=== PATIENT | male | born 1950 | race Caucasian/White ===

== ENCOUNTER 2021-03-22 13:12 | Outpatient (CLI) | payer MEDICARE ==
[2021-03-22 14:40] LABS: Bilirubin Neg (Negative); Blood, Urine Negative (Negative); Clarity Clear (Clear); Glucose, Urine (Dipstick) Normal (Negative); Ketone, Urine Negative (Negative); Leukocyte Negative (Negative); Nitrite Negative (Negative); Protein, Urine (Dipstick) 30 mg/dl (Neg-Trace); Specific Gravity, Urine 1.015 (1.002-1.036); Urobilinogen Normal mg/dL (Less than 2)
[2021-03-22 14:50] LABS: #Eosinphils 0.3 10x3/uL (0.0-0.5); #Monocytes 0.7 10x3/uL (0.0-1.1); #Neutrophils 3.6 10x3/uL (1.5-8.4); %Basophils 0.7 % (0.0-2.0); %Eosinophils 4.3 % (0.0-6.0); %Lymphocytes 20.9 % (18.0-47.0); %Monocytes 11.8 % (0.0-10.0); %Neutrophils 62.1 % (40.0-75.0); Hemoglobin 13.4 g/dL (13.5-17.5); Mean Corpuscular HGB CONC 32.3 g/dL (32.0-36.0); Mean Corpuscular Hemoglobin 32.4 pg (27.0-33.0); Mean Corpuscular Volume 100.2 fl (81.2-95.1); Mean Platelet Volume 10.1 fl (7.4-10.4); Platelet Count 228 10x3/uL (150-450); RBC Distribution Width 13.8 % (11.5-14.5); Red Blood Cell (RBC) Count 4.14 10x6/uL (4.32-5.72); White Blood Cell (WBC) Count 5.8 10x3/uL (3.5-10.5)
[2021-03-22 14:55] LABS: Bacteria/HPF Rare-Few HPF (None Seen); RBC/HPF None Seen HPF (0-3); Squamous Epithelial 0-3 HPF (0-3); WBC/HPF None Seen HPF (0-3)
[2021-03-22 15:04] LABS: PTT 26.3 sec (22.0-33.0); Prothrombin Time 11.1 sec (9.5-12.1)
[2021-03-22 15:13] LABS: Anion Gap 13 mmol/L (10-20); BUN (Urea Nitrogen) 31 mg/dL (8.4-25.7); Calc. Creatinine Clearance 0 mL/min (70-130); Calcium 9.6 mg/dL (7.8-10.44); Carbon Dioxide 22 mmol/L (23-31); Chloride 107 mmol/L (98-107); Glucose 98 mg/dL (83-110); Potassium 5.3 mmol/L (3.5-5.1); Sodium 137 mmol/L (136-145)
[2021-03-23 01:35] LABS: SARS-CoV-2 PCR by NAA Not Detected (NotDetected)
== END 2021-03-22 13:13 | disposition home or self-care (01) ==
LOC: LABBT 13:12
PROVIDERS: ATTEND Orthopaedic Surgery
DX: Z01.818 Encounter for other preprocedural examination (principal); M17.11 Unilateral primary osteoarthritis, right knee; Z20.822 Contact with and (suspected) exposure to COVID-19
CPT/HCPCS: 80048; 81001; 85025; 85610; 85730; 87081; U0003; U0005; 87635; 93005; 93010

== ENCOUNTER 2021-03-27 06:16 | Inpatient (IN) | payer MEDICARE ==
[2021-03-26 11:45] VITALS: BMI 43.7
[2021-03-27] MEDS ORDERED: Tranexamic Acid 1,000 MG/10 ML VIAL ONE (07:34)
[2021-03-27] MEDS ORDERED: Sodium Chloride 0.9% 100 ML ONE (07:34)
[2021-03-27] MEDS ORDERED: VANCOMYCIN 2 GRAM/400 ML BAG 2 GM in Premix Bag 1 BAG IVPB SCH (07:45)
[2021-03-27] MEDS ORDERED: Fentanyl 100 MCG/2 ML VIAL ONE ×4 (07:56→12:09)
[2021-03-27] MEDS ORDERED: Midazolam HCl 2 mg/2 ml Vial ONE (07:56)
[2021-03-27] MEDS ORDERED: Promethazine HCl 25 MG/ML VIAL IM PRN ×3 (08:49→09:51)
[2021-03-27] MEDS ORDERED: HYDROcodone/Acetaminophen 10/325 mg Tablet PO PRN ×4 (08:49→09:00)
[2021-03-27] MEDS ORDERED: Zolpidem Tartrate 5 MG TAB PO PRN ×2 (08:49→09:00)
[2021-03-27] MEDS ORDERED: Ondansetron PF 4 MG/2 ML Vial IVP PRN ×2 (08:49→09:00)
[2021-03-27] MEDS ORDERED: diphenhydrAMINE 25 MG CAP PO PRN (08:49)
[2021-03-27] MEDS ORDERED: Fentanyl 100 MCG/2 ML VIAL SLOW IVP PRN (09:00)
[2021-03-27] MEDS ORDERED: Ropivacaine HCl/PF 250 ML in Premix Bag 1 BAG NERVE BLCK SCH (09:00)
[2021-03-27] MEDS ORDERED: traMADol HCl 50 MG TAB PO PRN (09:00)
[2021-03-27] MEDS ORDERED: Ropivacaine 2% HCl/PF (20 MG/10 ML VIAL) ONE (09:14)
[2021-03-27] MEDS ORDERED: PROPOFOL 200 MG/20 ML VIAL ONE (09:14)
[2021-03-27] MEDS ORDERED: ePHEDrine Sulfate 50 MG/10 ML VIAL ONE (09:14)
[2021-03-27] MEDS ORDERED: Dexamethasone 20 MG/5 ML VIAL ONE (09:14)
[2021-03-27] MEDS ORDERED: Bupivacaine HCl 0.5%/Epinephrine 1:200,000/PF 30 ml Vial ONE (09:14)
[2021-03-27] MEDS ORDERED: Ondansetron PF 4 MG/2 ML Vial ONE (09:14)
[2021-03-27] MEDS ORDERED: Ondansetron HCl/PF 4 MG/2 ML Vial IVP PRN (09:51)
[2021-03-27] MEDS ORDERED: Promethazine HCl 25 MG/ML VIAL SLOW IVP PRN (09:51)
[2021-03-27] MEDS ORDERED: Ketorolac Tromethamine 30 MG/ML VIAL IVP SCH (14:00)
[2021-03-27] MEDS ORDERED: Dextrose 5% in Water 1,000 ML IV PRN (17:21)
[2021-03-27] MEDS ORDERED: Dextrose 50% Abboject 50 ML SYRINGE SLOW IVP PRN (17:21)
[2021-03-27] MEDS ORDERED: HumaLOG 300 UNITS/3 ML VIAL SC PRN (17:21)
[2021-03-27 17:37] LABS: Hemoglobin 13.4 g/dL (14.0-18.0); Mean Corpuscular HGB CONC 32.1 g/dL (32.0-36.0); Mean Corpuscular Hemoglobin 32.7 pg (27.0-31.0); Mean Platelet Volume 7.5 fL (7.4-10.4); Platelet Count 198 thou/uL (130-400); RBC Distribution Width 12.6 % (11.5-14.5); White Blood Cell (WBC) Count 9.3 thou/uL (4.8-10.8)
[2021-03-27 18:03] LABS: Anion Gap 14 mmol/L (10-20); BUN (Urea Nitrogen) 25 mg/dL (8.4-25.7); Calc. Creatinine Clearance 73 mL/min (70-130); Calcium 9.7 mg/dL (7.8-10.44); Carbon Dioxide 22 mmol/L (23-31); Chloride 104 mmol/L (98-107); Glucose 158 mg/dL (83-110); Potassium 5.1 mmol/L (3.5-5.1); Sodium 135 mmol/L (136-145)
[2021-03-27] MEDS: CEFAZOLIN 2 GM in Premix Bag 1 BAG IVPB SCH ×2 (18:08→23:21)
[2021-03-27] MEDS: traMADol HCl 50 MG TAB PO PRN ×2 (18:09→23:25)
[2021-03-27] MEDS: Acetaminophen 325 MG TAB PO PRN (18:09)
[2021-03-27] MEDS: Potassium Chloride 20 MEQ TAB PO SCH (18:10)
[2021-03-27] MEDS: Aspirin 81 mg Enteric Coated Tablet PO SCH ×2 (18:33→20:58)
[2021-03-27] MEDS: NIFEdipine XL 30 MG TAB PO SCH (18:33)
[2021-03-27] MEDS: Ketorolac Tromethamine 30 MG/ML VIAL IVP SCH ×2 (18:36→20:58)
[2021-03-27] MEDS: Sodium Chloride 0.9% 1,000 ML IV SCH ×2 (18:37→19:44)
[2021-03-27] MEDS: Atenolol 25 MG TAB PO SCH (20:55)
[2021-03-27] MEDS: Rosuvastatin 20 MG TAB PO SCH (20:55)
[2021-03-27] MEDS ORDERED: Pioglitazone HCl 45 MG TAB PO SCH (21:00)
[2021-03-27] MEDS ORDERED: Non-Formulary Item 1 EACH (Telmisartan/Hydrochlorothiazid [Telmisartan-Hctz 80-12.5 Mg Tb PO SCH (21:00)
[2021-03-28] MEDS: Ketorolac Tromethamine 30 MG/ML VIAL IVP SCH ×3 (05:42→21:14)
[2021-03-28] MEDS: Sodium Chloride 0.9% 1,000 ML IV SCH ×2 (05:43→14:11)
[2021-03-28 05:47] LABS: Hemoglobin 12.3 g/dL (14.0-18.0); Mean Corpuscular Hemoglobin 33.9 pg (27.0-31.0); Mean Platelet Volume 7.7 fL (7.4-10.4); Platelet Count 190 thou/uL (130-400); RBC Distribution Width 12.5 % (11.5-14.5); Red Blood Cell (RBC) Count 3.63 mill/uL (4.70-6.10); White Blood Cell (WBC) Count 9.1 thou/uL (4.8-10.8)
[2021-03-28] MEDS: traMADol HCl 50 MG TAB PO PRN ×3 (05:47→21:13)
[2021-03-28 06:03] LABS: Anion Gap 13 mmol/L (10-20); BUN (Urea Nitrogen) 31 mg/dL (8.4-25.7); Calc. Creatinine Clearance 72 mL/min (70-130); Calcium 9.2 mg/dL (7.8-10.44); Carbon Dioxide 22 mmol/L (23-31); Chloride 104 mmol/L (98-107); Glucose 114 mg/dL (83-110); Potassium 4.7 mmol/L (3.5-5.1); Sodium 134 mmol/L (136-145)
[2021-03-28] MEDS: Multivitamin W/ Minerals 1 TAB PO SCH (08:47)
[2021-03-28] MEDS: Rosuvastatin 20 MG TAB PO SCH (08:47)
[2021-03-28] MEDS: Senokot S 8.6-50 MG TAB PO SCH ×2 (08:47→21:13)
[2021-03-28] MEDS: NIFEdipine XL 30 MG TAB PO SCH (08:47)
[2021-03-28] MEDS: Aspirin 81 mg Enteric Coated Tablet PO SCH ×2 (08:47→21:13)
[2021-03-28] MEDS: Atenolol 25 MG TAB PO SCH (08:47)
[2021-03-28] MEDS: Potassium Chloride 20 MEQ TAB PO SCH ×2 (08:48→16:05)
[2021-03-28] MEDS: Ferrous Gluconate 324 MG TAB PO SCH ×2 (08:48→16:05)
[2021-03-28] MEDS: Acetaminophen 325 MG TAB PO PRN ×2 (12:13→21:13)
[2021-03-29] MEDS: Sodium Chloride 0.9% 1,000 ML IV SCH (01:21)
[2021-03-29] MEDS: Ketorolac Tromethamine 30 MG/ML VIAL IVP SCH ×2 (05:22→13:23)
[2021-03-29] MEDS: Atenolol 25 MG TAB PO SCH (08:17)
[2021-03-29] MEDS: Rosuvastatin 20 MG TAB PO SCH (08:17)
[2021-03-29] MEDS: Senokot S 8.6-50 MG TAB PO SCH (08:17)
[2021-03-29] MEDS: Potassium Chloride 20 MEQ TAB PO SCH (08:18)
[2021-03-29] MEDS: Aspirin 81 mg Enteric Coated Tablet PO SCH (08:18)
[2021-03-29] MEDS: Ferrous Gluconate 324 MG TAB PO SCH (08:18)
[2021-03-29] MEDS: Multivitamin W/ Minerals 1 TAB PO SCH (08:19)
[2021-03-29] MEDS: Acetaminophen 325 MG TAB PO PRN ×2 (08:19→13:23)
[2021-03-29] MEDS: traMADol HCl 50 MG TAB PO PRN ×2 (08:19→13:24)
[2021-03-29] MEDS: NIFEdipine XL 30 MG TAB PO SCH (08:22)
[2021-03-29 12:48] VITALS: BP 127/65; TEMP 98.2
== END 2021-03-29 15:08 | disposition home or self-care (01) | DRG 470 ==
LOC: SDC 06:16 → SURG B 08:49
PROVIDERS: ADMIT Orthopaedic Surgery; ATTEND Orthopaedic Surgery
PROC: 0SRC0J9 Replacement of Right Knee Joint with Synthetic Substitute, Cemented, Open Approach (ICD-10-PCS; principal; 2021-03-27)
PROC: 8E0YXBZ Computer Assisted Procedure of Lower Extremity (ICD-10-PCS; 2021-03-27)
DX: M17.11 Unilateral primary osteoarthritis, right knee (principal); Z68.41 Body mass index [BMI] 40.0-44.9, adult; Z20.822 Contact with and (suspected) exposure to COVID-19; E78.5 Hyperlipidemia, unspecified; E66.01 Morbid (severe) obesity due to excess calories; J30.2 Other seasonal allergic rhinitis; G47.33 Obstructive sleep apnea (adult) (pediatric); M54.31 Sciatica, right side; E11.22 Type 2 diabetes mellitus with diabetic chronic kidney disease; I12.9 Hypertensive chronic kidney disease with stage 1 through stage 4 chronic kidney disease, or unspecified chronic kidney disease; N18.9 Chronic kidney disease, unspecified; E87.5 Hyperkalemia; D63.1 Anemia in chronic kidney disease; Z79.82 Long term (current) use of aspirin; Z79.899 Other long term (current) drug therapy; Z87.891 Personal history of nicotine dependence; Z88.1 Allergy status to other antibiotic agents; Z99.89 Dependence on other enabling machines and devices
CPT/HCPCS: 36415; 36416; 76770; 80048; 82565; 85027; C1713; C1776; J0690; J1100; J1885; J2250; J2405; J2704; J2795; J3010; J3370; J3490

== ENCOUNTER 2021-08-15 13:36 | Outpatient (CLI) | payer MEDICARE ==
[2021-08-15 14:41] LABS: #Eosinphils 0.3 10x3/uL (0.0-0.5); #Monocytes 0.8 10x3/uL (0.0-1.1); #Neutrophils 3.2 10x3/uL (1.5-8.4); %Basophils 0.5 % (0.0-2.0); %Eosinophils 5.4 % (0.0-6.0); %Lymphocytes 22.4 % (18.0-47.0); %Monocytes 13.4 % (0.0-10.0); %Neutrophils 58.1 % (40.0-75.0); Hemoglobin 12.9 g/dL (13.5-17.5); Mean Corpuscular HGB CONC 32.4 g/dL (32.0-36.0); Mean Corpuscular Hemoglobin 32.3 pg (27.0-33.0); Mean Corpuscular Volume 99.5 fl (81.2-95.1); Mean Platelet Volume 9.9 fl (7.4-10.4); Platelet Count 215 10x3/uL (150-450); RBC Distribution Width 14.1 % (11.5-14.5); White Blood Cell (WBC) Count 5.6 10x3/uL (3.5-10.5)
[2021-08-15 15:07] LABS: Prothrombin Time 10.9 sec (9.5-12.1)
[2021-08-15 15:12] LABS: Anion Gap 12 mmol/L (10-20); BUN (Urea Nitrogen) 20 mg/dL (8.4-25.7); Calc. Creatinine Clearance 0 mL/min (70-130); Calcium 10.1 mg/dL (7.8-10.44); Carbon Dioxide 24 mmol/L (23-31); Chloride 106 mmol/L (98-107); Glucose 94 mg/dL (83-110); Potassium 4.9 mmol/L (3.5-5.1); Sodium 137 mmol/L (136-145)
[2021-08-16 08:19] LABS: SARS-CoV-2 PCR by NAA Not Detected (NotDetected)
== END 2021-08-15 13:37 | disposition home or self-care (01) ==
LOC: LABBT 13:36
PROVIDERS: ATTEND Orthopaedic Surgery
DX: Z01.812 Encounter for preprocedural laboratory examination (principal); M17.12 Unilateral primary osteoarthritis, left knee; Z20.822 Contact with and (suspected) exposure to COVID-19
CPT/HCPCS: 80048; 85025; 85610; 87081; U0003; U0005

== ENCOUNTER 2021-08-20 05:30 | Day surgery (SDC) | payer MEDICARE ==
[2021-08-20] MEDS ORDERED: Tranexamic Acid 1,000 MG/10 ML VIAL ONE (05:46)
[2021-08-20] MEDS ORDERED: Sodium Chloride 0.9% 100 ML ONE (05:46)
[2021-08-20] MEDS ORDERED: ceFAZolin 2 GM/DEX 5% 100 ML BAG ONE (05:46)
[2021-08-20] MEDS ORDERED: VANCOMYCIN 2 GRAM/400 ML BAG 2 GM in Premix Bag 1 BAG IVPB SCH ×2 (06:00→18:00)
[2021-08-20] MEDS ORDERED: Lidocaine 1% PF 5 ML VIAL ONE (06:46)
[2021-08-20] MEDS ORDERED: Fentanyl 100 MCG/2 ML VIAL ONE ×2 (06:46→07:17)
[2021-08-20] MEDS ORDERED: Midazolam HCl 2 mg/2 ml Vial ONE (06:46)
[2021-08-20] MEDS ORDERED: Bupivacaine HCl 0.5%/Epinephrine 1:200,000/PF 30 ml Vial ONE (07:07)
[2021-08-20] MEDS ORDERED: PROPOFOL 200 MG/20 ML VIAL ONE (07:07)
[2021-08-20] MEDS ORDERED: Rocuronium Bromide 10 MG/ML (10ML VIAL) ONE (07:07)
[2021-08-20] MEDS ORDERED: Ondansetron PF 4 MG/2 ML Vial ONE (07:07)
[2021-08-20] MEDS ORDERED: Ketorolac Tromethamine 30 MG/ML VIAL ONE (07:07)
[2021-08-20] MEDS ORDERED: Ropivacaine 2% HCl/PF (20 MG/10 ML VIAL) ONE (07:07)
[2021-08-20] MEDS ORDERED: Dexamethasone 20 MG/5 ML VIAL ONE (07:07)
[2021-08-20] MEDS ORDERED: diphenhydrAMINE 25 MG CAP PO PRN (07:22)
[2021-08-20] MEDS ORDERED: Zolpidem Tartrate 5 MG TAB PO PRN ×2 (07:22→08:00)
[2021-08-20] MEDS ORDERED: traMADol HCl 50 MG TAB PO PRN ×2 (07:22→08:00)
[2021-08-20] MEDS ORDERED: Acetaminophen 325 MG TAB PO PRN (07:22)
[2021-08-20] MEDS ORDERED: Fentanyl 100 MCG/2 ML VIAL SLOW IVP PRN (07:22)
[2021-08-20] MEDS ORDERED: HYDROcodone/Acetaminophen 10/325 mg Tablet PO PRN ×3 (07:22→08:00)
[2021-08-20] MEDS ORDERED: Promethazine HCl 25 MG/ML VIAL IM PRN ×2 (07:22→08:00)
[2021-08-20] MEDS ORDERED: Ondansetron PF 4 MG/2 ML Vial IVP PRN ×2 (07:22→08:00)
[2021-08-20] MEDS ORDERED: Fentanyl 100 MCG/2 ML VIAL IV PRN (07:50)
[2021-08-20] MEDS ORDERED: Ropivacaine 0.2% 550 ML 550 ML NERVE BLCK SCH (08:00)
[2021-08-20] MEDS ORDERED: Aspirin 81 mg Enteric Coated Tablet PO SCH (09:00)
[2021-08-20] MEDS ORDERED: NIFEdipine XL 30 MG TAB PO SCH (09:00)
[2021-08-20] MEDS ORDERED: Meperidine HCl/PF 25 MG/ML VIAL ONE (09:19)
[2021-08-20] MEDS: HYDROcodone/Acetaminophen 10/325 mg Tablet PO PRN ×2 (12:00→21:32)
[2021-08-20] MEDS: Potassium Chloride 20 MEQ TAB PO SCH ×2 (12:00→21:30)
[2021-08-20] MEDS: Multivitamin W/ Minerals 1 TAB PO SCH (12:00)
[2021-08-20] MEDS: Ferrous Gluconate 324 MG TAB PO SCH ×2 (12:00→21:26)
[2021-08-20] MEDS: Aspirin 81 mg Enteric Coated Tablet PO SCH ×2 (12:00→21:26)
[2021-08-20] MEDS: Senokot S 8.6-50 MG TAB PO SCH ×2 (12:00→21:30)
[2021-08-20] MEDS: Atenolol 25 MG TAB PO SCH (12:30)
[2021-08-20] MEDS: Dextrose 5 %-0.45 % NaCl 1,000 ML IV SCH ×2 (12:30→19:35)
[2021-08-20 12:36] VITALS: BMI 45.1
[2021-08-20] MEDS ORDERED: CEFAZOLIN 2 GM in Premix Bag 1 BAG IVPB SCH (14:00)
[2021-08-20] MEDS ORDERED: Ketorolac Tromethamine 30 MG/ML VIAL IVP SCH (14:00)
[2021-08-20] MEDS: ceFAZolin Sodium/D5W 2 GM in Premix Bag 1 BAG IVPB SCH (15:53)
[2021-08-20] MEDS: traMADol HCl 50 MG TAB PO PRN (17:05)
[2021-08-20] MEDS ORDERED: FLU VACC QS2021-22(65YR UP)/PF 240 MCG/0.7 ML SYRINGE IM ONE (17:15)
[2021-08-20] MEDS ORDERED: Pioglitazone HCl 45 MG TAB PO SCH (21:00)
[2021-08-20] MEDS ORDERED: Rosuvastatin 20 MG TAB PO SCH (21:00)
[2021-08-20] MEDS: NIFEdipine XL 30 MG TAB PO SCH ×2 (21:38→21:52)
[2021-08-21] MEDS: ceFAZolin Sodium/D5W 2 GM in Premix Bag 1 BAG IVPB SCH (00:23)
[2021-08-21 05:53] LABS: Hemoglobin 11.4 g/dL (14.0-18.0); Mean Corpuscular HGB CONC 33.9 g/dL (32.0-36.0); Mean Corpuscular Hemoglobin 34.4 pg (27.0-31.0); Mean Platelet Volume 7.6 fL (7.4-10.4); Platelet Count 174 thou/uL (130-400); RBC Distribution Width 12.8 % (11.5-14.5)
[2021-08-21] MEDS: Dextrose 5 %-0.45 % NaCl 1,000 ML IV SCH (06:31)
[2021-08-21 08:04] VITALS: TEMP 98.9
[2021-08-21] MEDS: traMADol HCl 50 MG TAB PO PRN ×2 (08:47→10:07)
[2021-08-21] MEDS: Potassium Chloride 20 MEQ TAB PO SCH (08:51)
[2021-08-21] MEDS: Atenolol 25 MG TAB PO SCH (08:51)
[2021-08-21] MEDS: Aspirin 81 mg Enteric Coated Tablet PO SCH (08:51)
[2021-08-21] MEDS: Senokot S 8.6-50 MG TAB PO SCH (08:51)
[2021-08-21] MEDS: Ferrous Gluconate 324 MG TAB PO SCH (08:51)
[2021-08-21] MEDS: Multivitamin W/ Minerals 1 TAB PO SCH (08:51)
[2021-08-21 12:05] VITALS: BP 135/70
== END 2021-08-21 13:10 | disposition home or self-care (01) ==
LOC: SDC 05:30 → SURG B 07:22 → SDC 08-21 13:10
PROVIDERS: ATTEND Orthopaedic Surgery
PROC: 0SRD0J9 Replacement of Left Knee Joint with Synthetic Substitute, Cemented, Open Approach (ICD-10-PCS; principal; 2021-08-20)
PROC: 8E0YXBZ Computer Assisted Procedure of Lower Extremity (ICD-10-PCS; 2021-08-20)
PROC: 3E0T3BZ Introduction of Anesthetic Agent into Peripheral Nerves and Plexi, Percutaneous Approach (ICD-10-PCS; 2021-08-20)
PROC: 3E0T3BZ Introduction of Anesthetic Agent into Peripheral Nerves and Plexi, Percutaneous Approach (ICD-10-PCS; 2021-08-20)
DX: M17.12 Unilateral primary osteoarthritis, left knee (principal); E78.5 Hyperlipidemia, unspecified; I10 Essential (primary) hypertension; G89.29 Other chronic pain; E11.9 Type 2 diabetes mellitus without complications; Z87.891 Personal history of nicotine dependence; Z79.82 Long term (current) use of aspirin; Z79.84 Long term (current) use of oral hypoglycemic drugs; Z79.899 Other long term (current) drug therapy; Z88.0 Allergy status to penicillin; Z96.651 Presence of right artificial knee joint
CPT/HCPCS: 20985; 27447; 64445; 64448; 73560; 85027; 97110 ×2; 97116 ×2; A4306; C1713; C1776; 36415; J1100; J1885; J2175; J2250; J2405; J2704; J2795; J3010; J3370; J3490

== ENCOUNTER 2021-09-03 13:09 | Outpatient (CLI) | payer MEDICARE | END 2021-09-03 13:10 | disposition home or self-care (01) | LOC: ULT 13:09 | PROVIDERS: ATTEND Orthopaedic Surgery | DX: R22.42 Localized swelling, mass and lump, left lower limb (principal); Z96.652 Presence of left artificial knee joint ==

== ENCOUNTER 2022-11-25 14:02 | Outpatient (CLI) | payer MEDICARE ==
[2022-11-25 15:16] LABS: #Eosinphils 0.2 10x3/uL (0.0-0.5); #Monocytes 0.8 10x3/uL (0.0-1.1); #Neutrophils 3.3 10x3/uL (1.5-8.4); %Basophils 0.4 % (0.0-2.0); %Eosinophils 3.5 % (0.0-6.0); %Lymphocytes 21.6 % (18.0-47.0); %Monocytes 14.7 % (0.0-10.0); %Neutrophils 59.6 % (40.0-75.0); Hemoglobin 14.2 g/dL (13.5-17.5); Mean Corpuscular HGB CONC 33.4 g/dL (32.0-36.0); Mean Corpuscular Hemoglobin 33.3 pg (27.0-33.0); Mean Corpuscular Volume 99.5 fl (81.2-95.1); Mean Platelet Volume 10.9 fl (7.4-10.4); Platelet Count 192 10x3/uL (150-450); RBC Distribution Width 14.3 % (11.5-14.5); Red Blood Cell (RBC) Count 4.27 10x6/uL (4.32-5.72); White Blood Cell (WBC) Count 5.5 10x3/uL (3.5-10.5)
[2022-11-25 15:23] LABS: Prothrombin Time 10.9 sec (9.5-12.1)
[2022-11-25 15:28] LABS: Anion Gap 12 mmol/L (10-20); BUN (Urea Nitrogen) 27 mg/dL (8.4-25.7); Calc. Creatinine Clearance 0 mL/min (70-130); Calcium 9.7 mg/dL (7.8-10.44); Carbon Dioxide 24 mmol/L (23-31); Chloride 108 mmol/L (98-107); Estimated GFR 50; Glucose 93 mg/dL (83-110); Potassium 4.5 mmol/L (3.5-5.1); Sodium 139 mmol/L (136-145)
== END 2022-11-25 14:03 | disposition home or self-care (01) ==
LOC: LABBT 14:02
PROVIDERS: ATTEND Orthopaedic Surgery
DX: Z01.818 Encounter for other preprocedural examination (principal); M16.11 Unilateral primary osteoarthritis, right hip
CPT/HCPCS: 80048; 85025; 85610; 87081; 93005; 93010

== ENCOUNTER 2022-11-26 07:26 | Observation (INO) | payer MEDICARE ==
[2022-11-26] MEDS ORDERED: Sodium Chloride 0.9% 100 ML ONE ×2 (07:58→11:22)
[2022-11-26] MEDS ORDERED: Tranexamic Acid 1,000 MG/10 ML VIAL ONE (07:58)
[2022-11-26] MEDS ORDERED: VANCOMYCIN 2 GRAM/500 ML BAG 2 GM in Premix Bag 1 BAG IVPB SCH (08:15)
[2022-11-26 08:46] LABS: SARS-CoV-2 NAA Rapid Test Not Detected (NotDetected)
[2022-11-26] MEDS ORDERED: Lidocaine 1% (PF) 30 ML VIAL ONE (09:04)
[2022-11-26] MEDS ORDERED: Bupivacaine PF 0.5% 30 ML VIAL ONE ×2 (09:04→11:22)
[2022-11-26] MEDS ORDERED: Fentanyl 100 MCG/2 ML VIAL ONE ×2 (09:04→14:30)
[2022-11-26] MEDS ORDERED: Midazolam HCl 2 mg/2 ml Vial ONE (09:04)
[2022-11-26] MEDS ORDERED: fentaNYL PF 100 MCG/2 ML SYRINGE ONE (11:17)
[2022-11-26] MEDS ORDERED: Propofol 500 MG/50 ML VIAL ONE (11:17)
[2022-11-26] MEDS ORDERED: CEFAZOLIN 2 GM VIAL ONE (11:22)
[2022-11-26] MEDS ORDERED: ePHEDrine 50 MG/ML VIAL ONE (11:28)
[2022-11-26] MEDS ORDERED: Bupivacaine HCl 0.5%/Epinephrine 1:200,000/PF 30 ml Vial ONE (11:28)
[2022-11-26] MEDS ORDERED: Glycopyrrolate 0.2 MG/ML 5 ML SYRINGE ONE (11:28)
[2022-11-26] MEDS ORDERED: Meperidine HCl/PF 25 MG/ML VIAL SLOW IVP PRN (12:44)
[2022-11-26] MEDS ORDERED: Promethazine HCl 25 MG/ML VIAL IM PRN ×2 (12:44→13:25)
[2022-11-26] MEDS ORDERED: Ondansetron HCl/PF 4 MG/2 ML Vial IVP PRN (12:44)
[2022-11-26] MEDS ORDERED: HYDROmorphone 2 MG/ML VIAL SLOW IVP PRN (12:44)
[2022-11-26] MEDS ORDERED: PROPOFOL 0 ML ONE (12:48)
[2022-11-26] MEDS ORDERED: Acetaminophen 325 MG TAB PO PRN (13:25)
[2022-11-26] MEDS ORDERED: HYDROcodone/Acetaminophen 10/325 mg Tablet PO PRN (13:25)
[2022-11-26] MEDS ORDERED: Fentanyl 100 MCG/2 ML VIAL SLOW IVP PRN ×2 (13:25)
[2022-11-26] MEDS ORDERED: Ondansetron PF 4 MG/2 ML Vial IVP PRN (13:25)
[2022-11-26] MEDS ORDERED: diphenhydrAMINE 25 MG CAP PO PRN (13:25)
[2022-11-26] MEDS ORDERED: Zolpidem Tartrate 5 MG TAB PO PRN (13:25)
[2022-11-26 16:07] VITALS: BMI 43.4
[2022-11-26] MEDS: Ketorolac Tromethamine 30 MG/ML VIAL IVP SCH ×2 (16:29→21:13)
[2022-11-26] MEDS ORDERED: FLU VACC QS2022-23(65YR UP)/PF 240 MCG/0.7 ML SYRINGE IM ONE (16:30)
[2022-11-26] MEDS: Sodium Chloride 0.9% 1,000 ML IV SCH ×2 (16:32→23:30)
[2022-11-26] MEDS: HYDROcodone/Acetaminophen 10/325 mg Tablet PO PRN ×2 (16:49→21:10)
[2022-11-26] MEDS ORDERED: Pioglitazone HCl 45 MG TAB PO SCH (21:00)
[2022-11-26] MEDS ORDERED: Rosuvastatin 20 MG TAB PO SCH (21:00)
[2022-11-26] MEDS: Ferrous Gluconate 324 MG TAB PO SCH (21:12)
[2022-11-26] MEDS: Aspirin 81 mg Enteric Coated Tablet PO SCH (21:12)
[2022-11-26] MEDS: CEFAZOLIN 2 GM in Sodium Chloride 0.9% 100 ML IVPB SCH (21:14)
[2022-11-26] MEDS: Senokot S 8.6-50 MG TAB PO SCH (21:15)
[2022-11-27] MEDS: Ketorolac Tromethamine 30 MG/ML VIAL IVP SCH (05:19)
[2022-11-27] MEDS: CEFAZOLIN 2 GM in Sodium Chloride 0.9% 100 ML IVPB SCH (05:20)
[2022-11-27 06:38] LABS: Mean Corpuscular HGB CONC 33.2 g/dL (32.0-36.0); Mean Corpuscular Hemoglobin 34.3 pg (27.0-31.0); Mean Platelet Volume 8.5 fL (7.4-10.4); Platelet Count 140 10x3/uL (130-400); RBC Distribution Width 13.1 % (11.5-14.5); White Blood Cell (WBC) Count 6.8 10x3/uL (4.8-10.8)
[2022-11-27] MEDS: HYDROcodone/Acetaminophen 10/325 mg Tablet PO PRN (08:51)
[2022-11-27] MEDS: Aspirin 81 mg Enteric Coated Tablet PO SCH (08:53)
[2022-11-27] MEDS: Ferrous Gluconate 324 MG TAB PO SCH (08:53)
[2022-11-27] MEDS: Senokot S 8.6-50 MG TAB PO SCH (08:53)
[2022-11-27 08:59] VITALS: BP 130/69
[2022-11-27] MEDS ORDERED: NIFEdipine XL 30 MG TAB PO SCH (09:00)
[2022-11-27] MEDS ORDERED: Atenolol 25 MG TAB PO SCH (09:00)
[2022-11-27] MEDS ORDERED: Potassium Chloride 20 MEQ TAB PO SCH (09:00)
[2022-11-27] MEDS ORDERED: Multivitamin W/ Minerals 1 TAB PO SCH (09:00)
[2022-11-27] MEDS ORDERED: Aspirin 81 mg Enteric Coated Tablet PO SCH (09:00)
[2022-11-27] MEDS: Sodium Chloride 0.9% 1,000 ML IV SCH (09:01)
[2022-11-27 09:09] VITALS: TEMP 98
== END 2022-11-27 12:23 | disposition home or self-care (01) ==
LOC: SDC 07:26 → SURG B 15:48
PROVIDERS: ADMIT Orthopaedic Surgery; ATTEND Orthopaedic Surgery
PROC: 0SR904A Replacement of Right Hip Joint with Ceramic on Polyethylene Synthetic Substitute, Uncemented, Open Approach (ICD-10-PCS; principal; 2022-11-26)
DX: M16.11 Unilateral primary osteoarthritis, right hip (principal); E78.5 Hyperlipidemia, unspecified; I10 Essential (primary) hypertension; E11.9 Type 2 diabetes mellitus without complications; Z87.891 Personal history of nicotine dependence; Z79.82 Long term (current) use of aspirin; Z79.84 Long term (current) use of oral hypoglycemic drugs; Z79.899 Other long term (current) drug therapy; Z88.0 Allergy status to penicillin; Z96.653 Presence of artificial knee joint, bilateral; Z20.822 Contact with and (suspected) exposure to COVID-19
CPT/HCPCS: 27130; 73502; 85027; 97110 ×2; 97116 ×2; 97530 ×2; 97535; J3370; U0002; 36415; 96365; 96375; 96376; C1776; G0378; J1885; J2001; J2250; J2405; J2704; J3010; J3490; J7050; S0020